=== PATIENT | female | born 1970 | race Caucasian/White ===

== ENCOUNTER 2023-08-13 14:07 | Emergency (ER) | payer MEDICAID ==
[2023-08-13] MEDS ORDERED: Bupivacaine 0.5% 10 ML SDV INJECT ONE (14:26)
[2023-08-13] MEDS ORDERED: Lidocaine 1% with EPINEPHrine 1:100,000 20 ML MDV INJECT ONE (14:26)
[2023-08-13] MEDS ORDERED: cefTRIAXone 1 GM Vial IM ONE (14:44)
[2023-08-13] MEDS ORDERED: Lidocaine 1% 5 ML VIAL INJECT ONE (14:46)
[2023-08-13] MEDS ORDERED: Ketorolac 30 MG/ML SDV IM ONE (14:47)
== END 2023-08-13 15:30 | disposition home or self-care (01) ==
LOC: FB.ED 14:07
DX: K04.7 Periapical abscess without sinus (principal); Z88.8 Allergy status to other drugs, medicaments and biological substances
CPT/HCPCS: 64400; 96372; 99283; J0696; J1885; J3490

== ENCOUNTER 2023-12-13 01:02 | Emergency (ER) | payer MEDICAID ==
[2023-12-13] MEDS ORDERED: Albuterol 0.083% 2.5 MG/3 ML Neb Soln NEB ONE (01:27)
[2023-12-13] MEDS ORDERED: Albuterol/Ipratropium 3.0-0.5 MG/3 ML Neb Soln NEB ONE (01:27)
== END 2023-12-13 03:04 | disposition home or self-care (01) ==
LOC: FB.ED 01:02
DX: U07.1 COVID-19 (principal); J45.21 Mild intermittent asthma with (acute) exacerbation; Z88.8 Allergy status to other drugs, medicaments and biological substances; Z90.49 Acquired absence of other specified parts of digestive tract; Z79.899 Other long term (current) drug therapy
CPT/HCPCS: 94640; 99284; J7620

== ENCOUNTER 2024-03-06 20:32 | Emergency (ER) | payer MEDICAID ==
[2024-03-06] MEDS: Ketorolac 30 MG/ML SDV IM ONE (21:14)
[2024-03-06] MEDS: HYDROmorphone 2 MG/ML SDV IM ONE (23:02)
== END 2024-03-06 23:29 | disposition home or self-care (01) ==
LOC: FB.ED 20:32
DX: S90.32XA Contusion of left foot, initial encounter (principal); E66.9 Obesity, unspecified; E78.00 Pure hypercholesterolemia, unspecified; F17.210 Nicotine dependence, cigarettes, uncomplicated; Z88.8 Allergy status to other drugs, medicaments and biological substances; Z79.51 Long term (current) use of inhaled steroids; Z79.899 Other long term (current) drug therapy; Z68.42 Body mass index [BMI] 45.0-49.9, adult; X58.XXXA Exposure to other specified factors, initial encounter
CPT/HCPCS: 96372; 99283; J1170; J1885

== ENCOUNTER 2024-06-22 14:51 | Emergency (ER) | payer MEDICAID ==
[2024-06-22] MEDS ORDERED: traMADol 50 MG Tab PO ONE (14:52)
== END 2024-06-22 15:37 | disposition home or self-care (01) ==
LOC: FB.ED 14:51
DX: S29.011A Strain of muscle and tendon of front wall of thorax, initial encounter (principal); E78.00 Pure hypercholesterolemia, unspecified; E66.9 Obesity, unspecified; Z88.8 Allergy status to other drugs, medicaments and biological substances; Z79.899 Other long term (current) drug therapy; Z90.49 Acquired absence of other specified parts of digestive tract; Z68.43 Body mass index [BMI] 50.0-59.9, adult; X58.XXXA Exposure to other specified factors, initial encounter
CPT/HCPCS: 99283; A9270

== ENCOUNTER 2024-10-06 15:23 | Emergency (ER) | payer MEDICAID ==
[2024-10-06] MEDS ORDERED: traMADol 50 MG Tab PO ONE (15:24)
[2024-10-06] MEDS: Clindamycin HCl 150 MG Cap PO ONE (16:10)
[2024-10-06] MEDS: traMADol 50 MG Tab PO ONE (16:10)
[2024-10-06] MEDS: Ketorolac 30 MG/ML SDV IM ONE (16:10)
== END 2024-10-06 16:26 | disposition home or self-care (01) ==
LOC: FB.ED 15:23
DX: K04.7 Periapical abscess without sinus (principal); K02.9 Dental caries, unspecified; R51.9 Headache, unspecified; E78.00 Pure hypercholesterolemia, unspecified; E66.9 Obesity, unspecified; F17.200 Nicotine dependence, unspecified, uncomplicated; Z90.49 Acquired absence of other specified parts of digestive tract; Z88.8 Allergy status to other drugs, medicaments and biological substances; Z79.51 Long term (current) use of inhaled steroids; Z79.52 Long term (current) use of systemic steroids; Z79.899 Other long term (current) drug therapy
CPT/HCPCS: 96372; 99283; A9270; J1885